=== PATIENT | female | born 1950 | race Caucasian/White ===

== ENCOUNTER → 2021-07-08 | Outpatient (CLI) | payer MEDICARE, OTHER ==
--- NOTE | 2021-07-08 10:14 | RAD ---
EXAM: Chest, 2 views. HISTORY: Breast cancer. COMPARISON: None. FINDINGS: 2 views of the chest are obtained. There is hyperinflation due to inspiratory effort or emp hysema. There are chronic appearing interstitial changes. There is lingular, right middle lobe and le ft lower lobe interstitial infiltrate or scarring. The heart is normal in size. There is no pleural e ffusion or pneumothorax. There are clips within the left axilla and axillary tail. IMPRESSION: Lingular, right middle lobe and left lower lobe interstitial infiltrate or scarring. Electronically signed by: Rachelle Keating MD (07/08/2021 10:12 AM) [id number]
== END ==
LOC: RAD 09:52
PROVIDERS: ATTEND Radiology Radiation Oncology
DX: C50.412 Malignant neoplasm of upper-outer quadrant of left female breast (principal)
CPT/HCPCS: 71046

== ENCOUNTER → 2021-07-22 | Outpatient (CLI) | payer MEDICARE, OTHER | LOC: CT 12:13 | PROVIDERS: ATTEND Radiology Radiation Oncology | DX: C50.412 Malignant neoplasm of upper-outer quadrant of left female breast (principal) | CPT/HCPCS: 76380 ==

== ENCOUNTER → 2021-09-20 | Outpatient (CLI) | payer MEDICARE, OTHER ==
--- NOTE | 2021-09-20 15:05 | RAD ---
EXAMINATION: XR CHEST 2V CLINICAL HISTORY: MALIGNANT NEOPLASM OF UPPER-OUTER QUADRANT OF FEMALE BREAST. EXAM DATE/TIME: 09/20/2021 11:16 AM COMPARISON: 07/08/2021 FINDINGS: Lines, Tubes, and Devices: None. Cardiomediastinal Silhouette: Heart size at upper limits of normal. Aortic atherosclerotic calcificat ion. Lungs and Pleura: Mild bibasilar opacities, similar to prior study. No evidence of pleural effusion o r pneumothorax. Bones and Soft Tissues: No acute osseous abnormality. Left axillary surgical clips. IMPRESSION: No evidence of acute cardiopulmonary abnormality. Similar-appearing bibasilar opacities, possibly related to subsegmental atelectasis and/or scarring. Electronically signed by: Larry Hernadez DO (09/20/2021 3:03 PM) [id number]
== END ==
LOC: RAD 10:53
PROVIDERS: ATTEND Radiology Radiation Oncology
DX: R91.8 Other nonspecific abnormal finding of lung field (principal); I70.0 Atherosclerosis of aorta; Z98.890 Other specified postprocedural states
CPT/HCPCS: 71046

== ENCOUNTER → 2021-09-23 | Outpatient (CLI) | payer MEDICARE, OTHER ==
[2021-09-23 12:41] LABS: BASO # 0.1 x10^3/uL (0.0-0.2); BASO % 1 % (0-3); EOS # 0.1 x10^3/uL (0.0-0.7); EOS % 1 % (0-3); HEMATOCRIT 41.9 % (36.0-47.0); HEMOGLOBIN 14.1 g/dL (12.0-15.5); LYMPH % 10 % (24-48); MEAN CORPUSCULAR HEMOGLOBIN 30 pg (25-35); MEAN CORPUSCULAR HGB CONC 34 g/dL (31-37); MEAN CORPUSCULAR VOLUME 90 fL (79-100); MONO # 0.6 x10^3/uL (0.0-1.1); MONO % 6 % (0-9); NEUT # 8.3 x10^3/uL (1.8-7.7); NEUT % 82 % (31-73); PLATELET COUNT 228 x10^3/uL (140-400); RED BLOOD COUNT 4.66 x10^6/uL (3.50-5.40); WHITE BLOOD COUNT 10.2 x10^3/uL (4.0-11.0)
[2021-09-23 12:48] LABS: CALCIUM 10.1 mg/dL (8.5-10.1); CREATININE 0.8 mg/dL (0.6-1.0); GFR 71.1; POTASSIUM 4.7 mmol/L (3.5-5.1)
[2021-09-23 12:54] LABS: ALBUMIN 3.9 g/dL (3.4-5.0); ALBUMIN/GLOBULIN RATIO 1.1 (1.0-1.7); TOTAL BILIRUBIN 0.6 mg/dL (0.2-1.0); TOTAL PROTEIN 7.4 g/dL (6.4-8.2)
== END ==
LOC: ONCLAB 11:50
PROVIDERS: ATTEND Physician Assistant
DX: C50.412 Malignant neoplasm of upper-outer quadrant of left female breast (principal)
CPT/HCPCS: 36415; 80053; 85025